=== PATIENT | male | born 1945 | race Caucasian/White ===

== ENCOUNTER 2018-01-11 11:00 | Emergency (ER) | payer MEDICARE, OTHER ==
[2018-01-11] MEDS ORDERED: CHLORHEXIDINE GLUCONATE 4 % 15 ML UD TOP ONE ×2 (11:08→11:58)
[2018-01-11 11:15] VITALS: BP 162/90; TEMP 97.4; O2SAT 96
[2018-01-11] MEDS ORDERED: LIDOCAINE 1% 10 ML VIAL INJ ONE (11:19)
[2018-01-11] MEDS ORDERED: BUPIVACAINE 0.5% 30 ML VIAL INJ ONE (11:23)
--- NOTE | 2018-01-11 11:45 | ED.PDOC ---
History of Present Illness - General Chief Complaint: Laceration Stated Complaint: finger laceration Time Seen by Provider: 01/11/18 11:33 Source: patient Exam Limitations: no limitations Additional Information: GOT FINGER CAUGHT IN ROUTER. - History of Present Illness Severity: mild Improving Factors: nothing Worsening Factors: nothing Associated Symptoms: denies symptoms Allergies/Adverse Reactions: Allergies Horse-derived Products Allergy (Verified 01/11/18 11:16) Home Medications: Ambulatory Orders Acetaminophen W/ Codeine [Tylenol W/ CODEINE #3] 1 ea PO Q6HR PRN #24 01/11/18 Aspirin [Aspirin Adult Low Dose] 81 mg PO BEDTIME 01/11/18 Cephalexin Monohydrate [Keflex] 500 mg PO TID #30 cap 01/11/18 Levocetirizine Dihydrochloride [Levocetirizine Dihydrochl] 5 mg PO DAILY Levothyroxine Sodium [Synthroid] 50 mcg PO DAILY 01/11/18 Metoprolol Succinate [Toprol XL] 50 mg PO DAILY 01/11/18 Ramipril [Ramipril] 5 mg PO BEDTIME 01/11/18 Rosuvastatin Calcium [Rosuvastatin Calcium] 10 mg PO DAILY 01/11/18 Review of Systems - Review of Systems Constitutional: States: no symptoms reported Musculoskeletal: States: other - PAIN TO 5TH DIGIT, NO OTHER INJURY C/O Skin: States: other - LACERATION Neurological: Denies: numbness, weakness Hematologic/Lymphatic: States: no symptoms reported Past Medical History (General) - Patient Medical History Hx Stroke: No Hx Cardiac Disorders: Yes Hx Congestive Heart Failure: No Hx Hypertension: Yes Hx Diabetes: No Hx Cancer: Yes - Prostate Surgical History: cholecystectomy, coronary bypass surgery - Vaccination History Hx Tetanus, Diphtheria Vaccination: Yes - 2-3 years ago Hx Influenza Vaccination: Yes Hx Pneumococcal Vaccination: Yes - Social History Hx Tobacco Use: Yes Family Medical History - Family History Father Family History: Unknown Living Status: Unknown Physical Exam - Physical Exam General Appearance: Alert, Comfortable Eye Exam: bilateral normal Ears, Nose, Throat: hearing grossly normal Neck: full range of motion, supple Peripheral Pulses: radial,left: 2+ Back Exam: normal inspection, no CVA tenderness Extremity: normal range of motion, non-tender, other - AVULSION TO MEDIAL ASPECT L 5TH DIGIT. NVI, NO BONY DEFORMITY, NO OBVIOUS TENDON INJURY Neurologic: no motor/sensory deficits, alert, normal mood/affect Skin Exam: normal color, warm/dry - AVULSION NOTED ABOVE. Progress - EKG/XRAY/CT XRAY: hand - NO FX. Procedures - Laceration/Wound Repair Left Finger Wound Length (cm): 1.5 Wound's Depth, Shape: flap - several linear lacerations across 5th digits. Wound Explored: no foreign body removed Betadine Prep?: No - CLEANED WITH SALINE. Wound Debrided: minimal Wound Repaired With: sutures Suture Size/Type: 5:0, prolene Layer Closure?: No Sterile Dressing Applied?: Yes - XEROFORM AND TUBE GAUZE. Splint Applied?: No Progress: LOOSELY APPROXIMATED, IRRIGATED WELL, Departure - Departure Clinical Impression: Laceration of finger of left hand Qualifiers: Encounter type: initial encounter Finger: little finger Damage to nail status: without damage Foreign body presence: without foreign body Qualified Code(s): S61.217A - Laceration without foreign body of left little finger without damage to nail, initial encounter Time of Disposition: 12:29 Disposition: Discharge to Home or Self Care Condition: Good Departure Forms: ED Discharge - Pt. Copy, Patient Portal Self Enrollment Instructions: DI for Laceration Repair, DI for Laceration Repair -- Finger Referrals: Brijesh Louise MD [Primary Care Provider] - 1-2 Weeks Prescriptions: Acetaminophen W/ Codeine [Tylenol W/ CODEINE #3] 1 ea PO Q6HR PRN #24 PRN Reason: Pain Cephalexin Monohydrate [Keflex] 500 mg PO TID #30 cap Home Medications: Ambulatory Orders Acetaminophen W/ Codeine [Tylenol W/ CODEINE #3] 1 ea PO Q6HR PRN #24 01/11/18 Aspirin [Aspirin Adult Low Dose] 81 mg PO BEDTIME 01/11/18 Cephalexin Monohydrate [Keflex] 500 mg PO TID #30 cap 01/11/18 Levocetirizine Dihydrochloride [Levocetirizine Dihydrochl] 5 mg PO DAILY Levothyroxine Sodium [Synthroid] 50 mcg PO DAILY 01/11/18 Metoprolol Succinate [Toprol XL] 50 mg PO DAILY 01/11/18 Ramipril [Ramipril] 5 mg PO BEDTIME 01/11/18 Rosuvastatin Calcium [Rosuvastatin Calcium] 10 mg PO DAILY 01/11/18
--- NOTE | 2018-01-11 12:04 | RAD ---
EXAM DESCRIPTION: Fingers,Left CLINICAL HISTORY: INJURY WITH POWER TOOL COMPARISON: None. TECHNIQUE: 3 views of the fifth digit of the left hand FINDINGS: Soft tissue injury is observed in the distal aspect of the fifth digit. No bone or joint abnormality is detected. No fracturing is seen. No repeat foreign bodies seen in the soft tissues. IMPRESSION: A soft tissue injury is observed distally. No fracturing is detected. Electronically signed by: Satya Aquino MD 01/11/2018 12:01 PM CDT
== END 2018-01-11 12:37 | disposition home or self-care (01) ==
LOC: ER 11:00
DX: S61.217A Laceration without foreign body of left little finger without damage to nail, initial encounter (principal); I10 Essential (primary) hypertension; Z95.1 Presence of aortocoronary bypass graft; Z85.46 Personal history of malignant neoplasm of prostate; Z87.891 Personal history of nicotine dependence; Z79.82 Long term (current) use of aspirin; W29.8XXA Contact with other powered hand tools and household machinery, initial encounter

== ENCOUNTER 2019-08-03 11:38 | Emergency (ER) | payer MEDICARE ==
[2019-08-03] MEDS ORDERED: SODIUM CHLORIDE 0.9% (FLUSH) 10 ML SYG IV PRN ×2 (11:53→12:04)
[2019-08-03 11:58] VITALS: TEMP 97
[2019-08-03] MEDS ORDERED: NITROGLYCERIN 0.4 MG 25 EA TAB SL ONE (12:04)
--- NOTE | 2019-08-03 12:48 | RAD ---
EXAM: XR Chest, 1 View CLINICAL HISTORY: pain TECHNIQUE: Frontal view of the chest. COMPARISON: No relevant prior studies available. FINDINGS: Limitations: None. Lungs: Unremarkable. No consolidation. Pleural space: Unremarkable. No pneumothorax. Heart: Coronary bypass changes present. Mediastinum: Unremarkable. Bones/joints: Unremarkable. IMPRESSION: No acute findings in the chest. Electronically signed by: Zuly Fink MD 08/03/2019 12:46 PM CDT
--- NOTE | 2019-08-03 14:02 | CT ---
EXAM DESCRIPTION: CTA Chest CLINICAL HISTORY: 74 years Male, high d -dimer COMPARISON: Chest radiograph obtained earlier same day, chest CT October 17, 2007 TECHNIQUE: CTA chest was performed with IV contrast including 3-D and/or MIP reconstructed images. This exam was performed according to our departmental dose-optimization program, which includes automated exposure control, adjustment of the mA and/or kV according to patient size and/or use of iterative reconstruction technique. FINDINGS: No pulmonary embolus. Postoperative changes in the mediastinum. Mural calcification in the thoracic aorta and coronary arteries. No adenopathy. No pleural or pericardial effusion. No esophageal wall thickening. No airspace consolidation or lung mass. The gallbladder is surgically absent. Visualized portions of the upper abdomen are otherwise unremarkable for pulmonary arterial technique. No fracture or pneumothorax. IMPRESSION: Postoperative changes in the mediastinum and coronary artery disease, but no pulmonary embolus or other acute intrathoracic abnormality. Electronically signed by: Odilon Jacome MD 08/03/2019 2:01 PM CDT
--- NOTE | 2019-08-03 15:27 | ED.PDOC ---
History of Present Illness - General Chief Complaint: Chest Pain/NV Stated Complaint: Chest discomfort, light-headed, SOB Time Seen by Provider: 08/03/19 11:52 - History of Present Illness Initial Comments: Pt is here with c/o having 1/10 chest discomfort while sitting in the zoroastrianism , no sob or wheezing Timing/Duration: 1-3 hours Severity/Quality: mild Location: substernal Chest Pain Radiation: no radiation Activities at Onset: none Worsening Factors: nothing Associated Symptoms: denies symptoms Allergies/Adverse Reactions: Allergies Horse-derived Products Allergy (Verified 01/11/18 11:16) Home Medications: Ambulatory Orders Aspirin [Aspirin Adult Low Dose] 81 mg PO BEDTIME 01/11/18 Levocetirizine Dihydrochloride [Levocetirizine Dihydrochl] 5 mg PO DAILY 01/11/18 Levothyroxine Sodium [Synthroid] 50 mcg PO DAILY 01/11/18 Metoprolol Succinate [Toprol XL] 50 mg PO DAILY 01/11/18 Ramipril 5 mg PO BEDTIME 01/11/18 Rosuvastatin Calcium 10 mg PO DAILY 01/11/18 Review of Systems - Review of Systems Constitutional: States: no symptoms reported EENTM: States: no symptoms reported Respiratory: States: no symptoms reported Cardiology: States: see HPI Gastrointestinal/Abdominal: States: no symptoms reported Genitourinary: States: no symptoms reported Musculoskeletal: States: no symptoms reported Neurological: States: no symptoms reported Endocrine: States: no symptoms reported Hematologic/Lymphatic: States: no symptoms reported All other Systems: Reviewed and Negative Past Medical History (General) - Patient Medical History Hx Stroke: No Hx Cardiac Disorders: Yes - NV x 2 (1996; 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) Hx Congestive Heart Failure: No Hx Hypertension: Yes Hx Thyroid Disease: Yes Hx Diabetes: No Hx Gastroesophageal Reflux: Yes Hx Cancer: Yes - Basal cell CA; prostate CA 2001 - tx with proton therapy Hx MRSA: No Surgical History: cholecystectomy, coronary bypass surgery - Vaccination History Hx Tetanus, Diphtheria Vaccination: Yes - 2-3 years ago Hx Influenza Vaccination: Yes - 2019 Hx Pneumococcal Vaccination: Yes - Social History Hx Tobacco Use: Yes - Quit 1984 Hx Alcohol Use: Yes - Moderate use Family Medical History - Family History Father Family History: Unknown Living Status: Unknown Physical Exam - Physical Exam General Appearance: Alert Progress - Results/Orders Results/Orders: 08/03/19 11:53 Sodium Chloride 0.9% (Flush) [Saline Flush Syringe] 10 ml IV PRN PRN EKG Stat Pulse Ox Stat 08/03/19 12:04 Sodium Chloride 0.9% (Flush) [Saline Flush Syringe] 10 ml IV PRN PRN Pulse Ox Stat 08/03/19 12:15 EKG STAT Laboratory Results WBC 8.3 K/mm3 (4.8-10.8) 08/03/19 11:53 RBC 5.55 M/mm3 (4.70-6.10) 08/03/19 11:53 Hgb 17.2 gm/dL (14.0-18.0) 08/03/19 11:53 Hct 49.9 % (42.0-52.0) 08/03/19 11:53 MCV 89.9 fl (80.0-94.0) 08/03/19 11:53 MCH 31.0 pg (27.0-31.0) 08/03/19 11:53 MCHC 34.5 g/dL (33.0-37.0) 08/03/19 11:53 RDW 13.6 % (11.5-14.5) 08/03/19 11:53 Plt Count 176 K/mm3 (130-400) 08/03/19 11:53 MPV 8.6 fl (7.40-10.4) 08/03/19 11:53 Absolute Neuts (auto) 5.10 K/uL (1.8-6.8) 08/03/19 11:53 Absolute Lymphs (auto) 2.20 K/uL (1.0-3.4) 08/03/19 11:53 Absolute Monos (auto) 0.80 K/uL (0.2-0.8) 08/03/19 11:53 Absolute Eos (auto) 0.20 K/uL (0.0-0.4) 08/03/19 11:53 Absolute Basos (auto) 0.10 K/uL (0.0-0.1) 08/03/19 11:53 Neutrophils % 60.9 % (42.0-78.0) 08/03/19 11:53 Lymphocytes % 26.2 % (20.0-50.0) 08/03/19 11:53 Monocytes % 9.5 % (2.0-9.0) H 08/03/19 11:53 Eosinophils % 2.4 % (1.0-5.0) 08/03/19 11:53 Basophils % 1.0 % (0.0-2.0) 08/03/19 11:53 PT 9.6 SECONDS (9.0-10.9) 08/03/19 11:53 INR 0.96 (0.9-1.15) 08/03/19 11:53 PTT (SP) 23.3 SECONDS (21.8-31.6) 08/03/19 11:53 D-Dimer, Quantitative 0.86 mg/L FEU (0-0.49) H* 08/03/19 11:53 Sodium 140 mmol/L (135-145) 08/03/19 11:53 Potassium 4.3 mmol/L (3.6-5.0) 08/03/19 11:53 Chloride 103 mmol/L (101-111) 08/03/19 11:53 Carbon Dioxide 26 mmol/L (21-31) 08/03/19 11:53 Anion Gap 15.3 (12-18) 08/03/19 11:53 BUN 11 mg/dL (7-18) 08/03/19 11:53 Creatinine 0.97 mg/dL (0.6-1.3) 08/03/19 11:53 BUN/Creatinine Ratio 11.3 (10-20) 08/03/19 11:53 Random Glucose 97 mg/dL (70-105) 08/03/19 11:53 Serum Osmolality 278.7 mOsm/L (275-295) 08/03/19 11:53 Calcium 9.3 mg/dL (8.4-10.2) 08/03/19 11:53 Magnesium 2.3 mg/dL (1.8-2.5) 08/03/19 11:53 Total Bilirubin 1.3 mg/dL (0.2-1.0) H 08/03/19 11:53 Direct Bilirubin 0.3 mg/dL (0-0.2) H 08/03/19 11:53 Indirect Bilirubin 1.0 mg/dL (0.2-0.8) H 08/03/19 11:53 AST 41 IU/L (10-42) 08/03/19 11:53 ALT 68 IU/L (10-60) H 08/03/19 11:53 Alkaline Phosphatase 55 IU/L (42-121) 08/03/19 11:53 Creatine Kinase 31 IU/L (38-174) L 08/03/19 14:33 CK-MB (CK-2) 1.0 ng/mL (0.0-4.4) 08/03/19 14:33 CK-MB (CK-2) % Not Reportable 08/03/19 14:33 Troponin I < 0.02 ng/mL (0.01-0.05) 08/03/19 14:33 B-Natriuretic Peptide 16.0 pg/ml (0-100) 08/03/19 11:53 Serum Total Protein 7.0 gm/dL (6.4-8.2) 08/03/19 11:53 Albumin 4.5 g/dl (3.2-5.5) 08/03/19 11:53 Departure - Departure Clinical Impression: Chest pain Time of Disposition: 15:27 Disposition: Discharge to Home or Self Care Departure Forms: ED Discharge - Pt. Copy, Patient Portal Self Enrollment Diet: resume usual diet Activity: increase activity as tolerated, walking as tolerated Referrals: CASTILLO FELIZ [Primary Care Provider] - 1-2 Weeks Home Medications: Ambulatory Orders Aspirin [Aspirin Adult Low Dose] 81 mg PO BEDTIME 01/11/18 Levocetirizine Dihydrochloride [Levocetirizine Dihydrochl] 5 mg PO DAILY 01/11/18 Levothyroxine Sodium [Synthroid] 50 mcg PO DAILY 01/11/18 Metoprolol Succinate [Toprol XL] 50 mg PO DAILY 01/11/18 Ramipril 5 mg PO BEDTIME 01/11/18 Rosuvastatin Calcium 10 mg PO DAILY 01/11/18 Additional Instructions: Follow up PCP and cardiology
[2019-08-03 15:31] VITALS: BP 155/85; O2SAT 99
== END 2019-08-03 15:36 | disposition home or self-care (01) ==
LOC: ER 11:38
DX: R07.2 Precordial pain (principal); I25.2 Old myocardial infarction; I10 Essential (primary) hypertension; E07.9 Disorder of thyroid, unspecified; K21.9 Gastro-esophageal reflux disease without esophagitis; Z85.46 Personal history of malignant neoplasm of prostate; Z85.828 Personal history of other malignant neoplasm of skin; Z87.891 Personal history of nicotine dependence; Z95.1 Presence of aortocoronary bypass graft; Z79.82 Long term (current) use of aspirin; Z79.899 Other long term (current) drug therapy